=== PATIENT | male | born 1975 | race Caucasian/White ===

== ENCOUNTER 2017-03-22 08:27 | Day surgery (SDC) | payer BC ==
[2017-03-21 11:47] VITALS: BMI 25.5
[2017-03-22] MEDS ORDERED: ROPIVACAINE HCL 0.5% 30ML VIAL ONE (08:32)
[2017-03-22] MEDS ORDERED: MIDAZOLAM HCL 2 MG/2 ML SINGLE DOSE VIAL ONE ×2 (08:33)
--- NOTE | 2017-03-22 09:22 | HP ---
Satellite [facility] - Chief Complaint Chief Complaint: left shoulder pain - Past Medical History Allergies/Adverse Reactions: Allergies Allergy/AdvReac Type Severity Reaction Status Date / Time No Known Allergies Allergy Verified 03/22/17 09:00 - Current Medications Current Medications: Home Medications Medication Instructions Recorded Oxycodone HCl/Acetaminophen 1 - 2 tab PO Q6H #50 tab MDD 8 03/22/17 [Percocet 5-325 mg Tablet -] Satellite Physical Exam - Physical Examination Vital Signs: Vital Signs Period Temp Pulse Resp BP Sys/Connor Pulse Ox Last 24 Hr 65 16 119/74 100 General Appearance: Well Nourished, Well Developed, Alert & Oriented x3 ENT: Clear Lung: Normal air movement Heart: Regular rate & rhythm Extremities: Other (left shoulder- + ttp, decrr rom, + apprehension, + flores, + obriens, nvi MRI + labral tear) Neurological: Intact, Alert, Oriented Satellite Impression/Plan - Impression/Plan Impression: left shoulder labral tear Operative Procedure: left shoulder arthroscopy with labral repair Date to be Performed: 03/22/17
[2017-03-22] MEDS ORDERED: PROPOFOL 20 ML ONE ×2 (09:50)
[2017-03-22] MEDS ORDERED: ROCURONIUM BROMIDE 50 MG/5 ML VIAL ONE (09:51)
[2017-03-22] MEDS ORDERED: ceFAZolin SODIUM 1 GM VIAL ONE (10:08)
[2017-03-22] MEDS ORDERED: ceFAZolin SODIUM 1 GM VIAL IVPB ONE (10:09)
[2017-03-22] MEDS ORDERED: ePHEDrine SULFATE 50 MG/1 ML AMPULE ONE (10:28)
[2017-03-22] MEDS ORDERED: ONDANSETRON 4 MG/2 ML VIAL IVPUSH PRN (10:31)
[2017-03-22] MEDS ORDERED: oxyCODONE HCL 5 MG TABLET PO PRN (10:31)
[2017-03-22] MEDS ORDERED: ACETAMINOPHEN 1000 MG/100 ML VIAL (NON FORMULARY) IVPB PRN (10:31)
[2017-03-22] MEDS ORDERED: LACTATED RINGERS SOLUTION 1,000 ML IV SCH (10:45)
[2017-03-22] MEDS ORDERED: GLYCOPYRROLATE 0.2 MG/1 ML VIAL ONE (10:47)
[2017-03-22] MEDS ORDERED: NEOSTIGMINE METHYLSULFATE 0.5 MG/ML - 10 ML MDV ONE (10:47)
--- NOTE | 2017-03-22 10:56 | OP ---
Operative Note - Note: Operative Date: 03/22/17 ([facility]) Pre-Operative Diagnosis: left shoulder labral tear Operation: left shoulder arthroscopy with labral repair Implants: 4 arthrex pushlocks Post-Operative Diagnosis: Same as Pre-op Surgeon: Swapnil Singh Student Teaching Coordinator: Eduard Jones Anesthesiologist/PLASTIC DIE MAKER APPRENTICE: Ute Chandler Anesthesia: General, Local Specimens Removed: shavings Estimated Blood Loss (mls): 5 Operative Report Dictated: Yes
--- NOTE | 2017-03-22 12:31 | OP ---
DATE OF OPERATION: 03/22/2017 PREOPERATIVE DIAGNOSIS: Left labral tear. POSTOPERATIVE DIAGNOSIS: Left labral tear. PROCEDURE: Left labral repair arthroscopically. SURGICAL ATTENDING: Swapnil Singh MD SAP MOBILITY ARCHITECT: COMPA Johns ANESTHESIA: Regional and general. CLOSURE: Four Arthrex PushLock with FiberStick suture, 3-0 nylon for skin. ESTIMATED BLOOD LOSS: Negligible. COMPLICATIONS: None. CONDITION: To recovery room in stable condition. DESCRIPTION OF OPERATIVE PROCEDURE: Patient was taken to the operating room on March 22, 2017. Regional and general anesthesia was administered by the anesthesiologist. IV Kefzol was administered prophylactically prior to the case. Patient was placed in the beach-chair position with all prominences well padded. The left shoulder area was prepped and draped in the usual sterile fashion. First a diagnostic arthroscopy of the glenohumeral joint was performed. A posterior portal was made 2 fingerbreadths below the acromion, first with a 15 blade followed by a blunt trocar. Circumferential exam of the glenohumeral joint revealed the following: Intact glenoid and humeral head articular cartilage, intact biceps and biceps anchor, intact supraspinatus, infraspinatus, teres minor, and subscapularis tendon insertions. No loose bodies in the axillary pouch. The anterior labrum was torn and displaced medially and inferiorly. The interval between the labrum and the glenoid was easily developed. We made two extra portals, one in the superior triangle and one just above the subscapularis tendon. These were made by a spinal needle followed by a 15 blade blunt trocar. A shaver was placed in this interval between the glenoid and the labrum to remove any soft tissue and stimulate some bleeding bone. A rasp was used, as well. The labrum was clearly easily able to be anteriorized and more superiorly to restore the bumper effect on the anterior aspect of the labrum. Pulling superiorly on the labrum, sutures were passed using a 90-degree lasso from the direct anterior portal. Each one was fixated to a PushLock Lavelle which was drilled and deployed on the glenoid rim, and the sutures were then cut snug. Four anchors were deployed going from [address] up to 2 o'clock achieving excellent rigidity of the labrum and synagogue of the bumper anteriorly. The shoulder was irrigated. The fluid was drained. The portals were closed with 3-0 nylon, sterile pressure dressing, followed by shoulder immobilizer applied. Patient was awakened from anesthesia and transferred to the recovery room in stable condition. No complications. Estimated blood loss negligible. SWAPNIL SINGH M.D. [id number]
[2017-03-22 12:46] VITALS: BP 110/70
[2017-03-22 12:56] VITALS: PULSE 76
[2017-03-22 13:20] VITALS: TEMP 98.2
--- NOTE | 2017-03-23 13:01 | PATH ---
Surgical Pathology Report Patient Name: HUGH MOSER Med. Rec. #: [id number] /Age/Gender: 1975 (Age: 41) / M Account: [id number] Location: [facility] SUR[facility]ICAL Taken: 03/22/2017 Received: 03/22/2017 Reported: 03/23/2017 Physicians: Swapnil Singh M.D. Specimen(s) Received LEFT SHOULDER SHAVINGS Clinical History Left shoulder lentiginous syndrome, labral tear Final Diagnosis SOFT TISSUE, LEFT SHOULDER, ARTHROSCOPIC SHAVINGS: SYNOVIUM AND FIBROCARTILAGE WITH MYXOHYALINE DEGENERATION. SMALL FRAGMENTS OF UNREMARKABLE BONE. Electronically Signed Fran Marks M.D. Gross Description Received in formalin, labeled "left shoulder shavings" is a 1.0 x 1.0 x 0.3 cm aggregate of chowdhury-white soft tissue fragments. Submitted entirely in one cassette. AF/03/22/2017 final/03/22/2017
== END 2017-03-22 12:10 | disposition home or self-care (01) ==
LOC: JASU-SURG 08:27
PROVIDERS: ATTEND Orthopaedic Surgery
PROC: 0RQK4ZZ Repair Left Shoulder Joint, Percutaneous Endoscopic Approach (ICD-10-PCS; 2017-03-22)
PROC: 0MM24ZZ Reattachment of Left Shoulder Bursa and Ligament, Percutaneous Endoscopic Approach (ICD-10-PCS; principal; 2017-03-22 10:15)
DX: S43.492A Other sprain of left shoulder joint, initial encounter (principal); X58.XXXA Exposure to other specified factors, initial encounter; Y93.9 Activity, unspecified; Y92.9 Unspecified place or not applicable; Y99.9 Unspecified external cause status
CPT/HCPCS: 88304-TC; 94760

== ENCOUNTER 2019-01-06 08:08 | Inpatient (IN) | payer OTHER ==
[2019-01-06 08:35] VITALS: BMI 21.1
--- NOTE | 2019-01-06 09:37 | HP ---
COWS - Scale Resting Pulse: 0= [place] 80 or Below Sweatin= Chills/Flushing Restless Observation: 1= Difficult to Sit Still Pupil Size: 1= Pupils >than Normal Bone or Joint Aches: 2= Severe Diffuse Aches Runny Nose/ Eye Tearin= Runny Nose/Eyes GI Upset > 30mins: 2= Nausea/Diarrhea Tremor Observation: 1= Tremor [place], Not Seen Yawning Observation: 2= >3x During Session Anxiety or Irritability: 2=Irritable/Anxious Goose Flesh Skin: 0=Smooth Skin COWS Score: 14 CIWA Score Nausea/Vomitin Muscle Tremors: 2 Anxiety: 2 Agitation: 2 Paroxysmal Sweats: 1-Minimal Palms Moist Orientation: 0-Oriented Tacttile Disturbances: 1-Very Mild Itch/Numbness Auditory Disturbances: 1-Very Mild Visual Disturbances: 0-None Headache: 2-Mild CIWA-Ar Total Score: 13 - Admission Criteria OASAS Guidelines: Admission for Medically Managed Detox: Requires at least one of the followin. CIWA greater than 12 2. Seizures within the past 24 hours 3. Delirium tremens within the past 24 hours 4. Hallucinations within the past 24 hours 5. Acute intervention needed for co occurring medical disorder 6. Acute intervention needed for co occurring psychiatric disorder 7. Severe withdrawal that cannot be handled at a lower level of care (continued vomiting, continued diarrhea, abnormal vital signs) requiring intravenous medication and/or fluids 8. Admission ROS S - [facility] Chief Complaint: i need help to stop using heroin,cocaine and marijuana and alcohol Allergies/Adverse Reactions: Allergies Allergy/AdvReac Type Severity Reaction Status Date / Time No Known Allergies Allergy Verified 01/06/19 08:34 History of Present Illness: this 43 years old male with hroin,cocaine and marijuana seeking help for detox, withdrawal symptom had previous admission before last detox [facility] in 12/16 stated had previous rehab before in [facility] asthma on albuterol inhaler and nebulizer at home weight loss nicotine dependence 1 pack/day would like to have nicotine patch and gum anxiety no significant period of sobriety plan for methadone program after detox also alcohol dependence Exam Limitations: No Limitations - Ebola screening Have you traveled outside of the country in the last 21 days: No (N) Have you had contact with anyone from an Ebola affected area: No Do you have a fever: No - Review of Systems Constitutional: Chills, Loss of Appetite, Malaise, Night Sweats, Changes in sleep, Weakness, Unintentional Wgt. Loss EENT: reports: See HPI, Nose Congestion Respiratory: reports: No Symptoms reported, Other (asthma) Cardiac: reports: No Symptoms Reported GI: reports: Diarrhea, Nausea, Poor Appetite, Abdominal cramping : reports: No Symptoms Reported Integumentary: reports: Dryness Neuro: reports: Headache, Tremors Endocrine: reports: No Symptoms Reported Hematology: reports: No Symptoms Reported Psychiatric: reports: No Sypmtoms Reported, Judgement Intact, Mood/Affect Appropiate, Orientated x3, Anxious, other (insomnia) Patient History - Patient Medical History Hx Anemia: No Hx Asthma: Yes (on pumps albutrol inhaler and nebulizer) Hx Chronic Obstructive Pulmonary Disease (COPD): No Hx Cancer: No Hx Cardiac Disorders: No Hx Congestive Heart Failure: No Hx Hypertension: No Hx Hypercholesterolemia: No Hx Pacemaker: No HX Cerebrovascular Accident: No Hx Seizures: No Hx Dementia: No Hx Diabetes: No Hx Gastrointestinal Disorders: No Hx Liver Disease: No Hx Genitourinary Disorders: No Hx Sexually Transmitted Disorders: No Hx Renal Disease (ESRD): No Hx Thyroid Disease: No Hx Human Immunodeficiency Virus (HIV): No (last 11/16 negative) Hx Hepatitis C: No Hx Depression: Yes (hospitalized in [place] ) Hx Suicide Attempt: No Hx Bipolar Disorder: No Hx Schizophrenia: No Other Medical History: no suicidal,no homicidal - Patient Surgical History Past Surgical History: Yes Hx Neurologic Surgery: No Hx Cataract Extraction: No Hx Cardiac Surgery: No Hx Lung Surgery: No Hx Breast Surgery: No Hx Breast Biopsy: No Hx Abdominal Surgery: No Hx Appendectomy: No Hx Cholecystectomy: No Hx Genitourinary Surgery: No Hx Section: No Hx Orthopedic Surgery: Yes (left shoulder rotary cuff- 10months ago arthsocopic) Anesthesia Reaction: No - PPD History Previous Implant?: Yes Documented Results: Negative w/proof Implanted On Prior [facility] Admission?: Yes Date: 02/16/18 Results: NEGATIVE - Smoking Cessation Smoking history: Current every day smoker Have you smoked in the past 12 months: No Aproximately how many cigarettes per day: 20 Hx Chewing Tobacco Use: No Initiated information on smoking cessation: Yes 'Breaking Loose' booklet given: 01/06/19 - Substance & Tx. History Hx Alcohol Use: Yes Hx Substance Use: Yes Substance Use Type: Alcohol, Cocaine, Heroin, Marijuana Hx Substance Use Treatment: Yes ([facility] 12/16) - Substances abused Other Other (specify): PERCOCET Substance route: Oral Frequency: Daily Amount used: 4-5 PILLS Age of first use: 42 Date of last use: 12/07/18 Heroin Substance route: Inhalation Frequency: Daily Amount used: 5-6 BAGS Age of first use: 43 Date of last use: 01/06/19 Cocaine Substance route: Inhalation Frequency: 3-6 times per week Amount used: 1 GRAM Age of first use: 43 Date of last use: 01/05/19 Marijuana/Hashish Substance route: Smoking Frequency: Daily Amount used: 1 Age of first use: 16 Date of last use: 01/06/19 Alcohol Substance route: Oral Frequency: Daily Amount used: 2 pint of whiskey/9 of 12 ozs of beer Age of first use: 17 Date of last use: 01/05/19 Family Disease History - Family Disease History Family Disease History: Diabetes: Mother (living, in [place]), Other: Father (living , prostate cancer, in [place], hx etoh), Mother, Brother (one - here in [place]), Daughter (age 10 and 6 - healthy) Admission Physical Exam S - Vital Signs Vital Signs: Vital Signs - 24 hr 01/06/19 08:32 Temperature 98.7 F Pulse Rate 71 Respiratory 18 Rate Blood Pressure 111/64 - Physical General Appearance: Yes: Moderate Distress, Tremorous, Irritable, Sweating, Anxious HEENTM: Yes: Normal ENT Inspection, NESTOR, Pharynx Normal Respiratory: Yes: Lungs Clear, Normal Breath Sounds, No Respiratory Distress, Other (history of asthma) Neck: Yes: Within Normal Limits, Supple, Trachea in good position Breast: Yes: Within Normal Limits Cardiology: Yes: Within Normal Limits, Regular Rhythm, Regular Rate, S1, S2 Abdominal: Yes: Within Normal Limits, Normal Bowel Sounds, Non Tender, Soft Genitourinary: Yes: Within Normal Limits Back: Yes: Muscle Spasm Musculoskeletal: Yes: full range of Motion, Back pain, Muscle Pain Extremities: Yes: Normal Range of Motion, Tremors Neurological: Yes: piano refinisher II-XII NML intact, Fully Oriented, Alert, Motor Strength 5/5 Integumentary: Yes: Dry - Diagnostic (1) Alcohol dependence with withdrawal Current Visit: No Status: Acute Qualifiers: Complication of substance-induced condition: uncomplicated Qualified Code(s ): F10.230 - Alcohol dependence with withdrawal, uncomplicated (2) Cannabis dependence Current Visit: No Status: Acute (3) Cocaine dependence Current Visit: No Status: Acute Qualifiers: Substance use status: uncomplicated Qualified Code(s): F14.20 - Cocaine dependence, uncomplicated (4) Nicotine dependence Current Visit: No Status: Acute Qualifiers: Nicotine product type: cigarettes Substance use status: uncomplicated Qualified Code(s): F17.210 - Nicotine dependence, cigarettes, uncomplicated Comment: encouraged cessation, has patch (5) Opioid dependence with withdrawal Current Visit: No Status: Acute Comment: start suboxone 8mg bid (previous success on this dose) risks and limitations reviewed, safekeeping emphasized, suboxone agreement reviewed and signed; emphasized to avoid alcohol, marijuana and rationale for same safety plan: narcan bowel regimen: increase fruit,fiber, metamucil (6) Asthma Current Visit: No Status: Chronic Qualifiers: Asthma severity: mild Asthma persistence: intermittent Asthma complication type: uncomplicated Qualified Code(s): J45.20 - Mild intermittent asthma, uncomplicated (7) Weight loss Current Visit: Yes Status: Acute (8) Anxiety Current Visit: Yes Status: Acute (9) Anxious mood Current Visit: No Status: Acute (10) Insomnia Current Visit: Yes Status: Acute Cleared for Admission S - Detox or Rehab S Level of Care: Medically Managed Detox Regimen/Protocol: Methadone/Librium Breathalyzer - Breathalyzer Breathalyzer: 0 Urine Drug Screen - Test Device Lot number: [id number] Expiration date: 09/27/20 - Control Is test valid?: Yes - Results Drug screen NEGATIVE: No Urine drug screen results: THC-Marijuana, APOORVA-Cocaine, MOP-Opiates, MTD- Methadone, BZO-Benzodiazepines Inpatient Rehab Admission - Rehab Decision to Admit Inpatient rehab admission?: No
[2019-01-06] MEDS ORDERED: cloNIDine HCL 0.1 MG TABLET PO PRN (09:48)
[2019-01-06] MEDS ORDERED: METHADONE HCL 10 MG TABLET (FOR DETOX USE ONLY) PO ONE ×2 (09:52→23:00)
[2019-01-06] MEDS ORDERED: METHOCARBAMOL 500 MG TABLET PO PRN (09:55)
[2019-01-06] MEDS ORDERED: MAGNESIUM HYDROX 2400MG/30ML ORAL SUSPENSION 30 ML CUP PO PRN (09:55)
[2019-01-06] MEDS ORDERED: IBUPROFEN 400 MG TABLET (FP) PO PRN (09:55)
[2019-01-06] MEDS ORDERED: MAGNESIUM CITRATE 300 ML BOTTLE PO PRN (09:55)
[2019-01-06] MEDS ORDERED: BISMUTH SUBSALICYLATE 524 MG/30 ML UD PO PRN (09:55)
[2019-01-06] MEDS ORDERED: MAG HYDROX/AL HYDROX/SIMETH 30 ML UNIT-DOSE CUP PO PRN (09:55)
[2019-01-06] MEDS ORDERED: hydrOXYzine PAMOATE 25 MG CAPSULE (FP) PO PRN (09:55)
[2019-01-06] MEDS ORDERED: NICOTINE POLACRILEX 2 MG GUM BUC PRN (09:55)
[2019-01-06] MEDS ORDERED: chlordiazePOXIDE HCL 25 MG CAPSULE PO PRN (09:55)
[2019-01-06] MEDS ORDERED: MENTHOL/PHENOL 1 EACH UD MM PRN (09:55)
[2019-01-06] MEDS ORDERED: ACETAMINOPHEN 325 MG TABLET (FP) PO PRN ×2 (09:55)
[2019-01-06] MEDS ORDERED: PRENATAL VITAMINS W/ FOLIC ACID TABLET (FP) PO SCH (10:00)
[2019-01-06] MEDS ORDERED: NICOTINE 21 MG/24 HOURS TOPICAL PATCH TD SCH (10:00)
[2019-01-06] MEDS ORDERED: ALBUTEROL SO4 2.5/IPRATROPIUM 0.5 INH SOL 3 ML VIAL.NEB. NEB PRN (10:01)
[2019-01-06] MEDS: chlordiazePOXIDE HCL 25 MG CAPSULE PO SCH ×3 (11:35→22:18)
[2019-01-06] MEDS: cloNIDine HCL 0.1 MG TABLET PO SCH ×2 (13:46→22:18)
[2019-01-06] MEDS: GABAPENTIN 300 MG CAPSULE (FP) PO SCH ×2 (13:47→22:18)
[2019-01-06] MEDS ORDERED: guaiFENesin/D-METHORPHAN HB 10 ML UNIT-DOSE CUPS PO PRN (18:05)
[2019-01-06 21:49] VITALS: BP 129/82; PULSE 64; TEMP 98.3
[2019-01-06] MEDS ORDERED: THIAMINE HCL 100 MG TABLET (FP) PO SCH (22:00)
[2019-01-06] MEDS ORDERED: MELATONIN 5 MG TABLETS PO PRN (22:00)
[2019-01-06] MEDS ORDERED: traZODone HCL 50 MG TABLET (FP) PO SCH (22:00)
[2019-01-07 03:27] LABS: EPI CELLS 8.1 /HPF (0-5/HPF); HYALINE CASTS 11 /lpf (0-8); PH,URINE 5.5 (5.0-8.0); URINE APPEARANCE TURBID; URINE BACTERIA 71.5 /hpf (NEGATIVE); URINE BILIRUBIN NEGATIVE (NEGATIVE); URINE COLOR DK YELLOW; URINE GLUCOSE (UA) NEGATIVE (NEGATIVE); URINE KETONE TRACE (NEGATIVE); URINE LEUK ESTERASE NEGATIVE (NEGATIVE); URINE NITRITE NEGATIVE (NEGATIVE); URINE PROTEIN 1+ (NEGATIVE); URINE WBC 3 /hpf (0-5)
[2019-01-07 03:54] LABS: URINE CRYSTALS 1+ /hpf
--- NOTE | 2019-01-07 04:32 | PN ---
S Progress Note Note: MD'S NOTE: INFORMED THAT THE PT. WANTS TO SIGN OUT AMA FOR PERSONAL PROBLEMS SO, THE PT. SIGNED OUT AMA AND ABOUT TO LEAVE THE FACILITY SOON. RECOMMENDED: TO F/U WITH PMD AND OUT PT. PROGRAMS. PROVIDER: ARIES LUBIN MD
[2019-01-07] MEDS ORDERED: METHADONE HCL 10 MG TABLET (FOR DETOX USE ONLY) PO ONE (10:00)
[2019-01-07] MEDS ORDERED: chlordiazePOXIDE HCL 25 MG CAPSULE PO SCH (11:00)
[2019-01-08] MEDS ORDERED: METHADONE HCL 10 MG TABLET (FOR DETOX USE ONLY) PO ONE (10:00)
[2019-01-08] MEDS ORDERED: chlordiazePOXIDE HCL 10 MG CAPSULE PO PRN (11:00)
[2019-01-08] MEDS ORDERED: chlordiazePOXIDE HCL 10 MG CAPSULE PO SCH (11:00)
[2019-01-09] MEDS ORDERED: METHADONE HCL 10 MG TABLET (FOR DETOX USE ONLY) PO ONE (10:00)
[2019-01-09] MEDS ORDERED: METHADONE HCL 5 MG TABLET (FOR DETOX USE ONLY) PO ONE (10:00)
[2019-01-09] MEDS ORDERED: chlordiazePOXIDE HCL 10 MG CAPSULE PO SCH (11:00)
[2019-01-10] MEDS ORDERED: METHADONE HCL 5 MG TABLET (FOR DETOX USE ONLY) PO ONE (06:00)
[2019-01-10] MEDS ORDERED: METHADONE HCL 10 MG TABLET (FOR DETOX USE ONLY) PO ONE (10:00)
[2019-01-11] MEDS ORDERED: METHADONE HCL 5 MG TABLET (FOR DETOX USE ONLY) PO ONE (06:00)
== END 2019-01-07 04:34 | disposition left against medical advice (07) | DRG 770 ==
LOC: YASAS 08:08 → Y3N 09:50
PROVIDERS: ADMIT Surgery; ATTEND Surgery
PROC: HZ2ZZZZ Detoxification Services for Substance Abuse Treatment (ICD-10-PCS; principal; 2019-01-06)
DX: F10.230 Alcohol dependence with withdrawal, uncomplicated (principal); F11.23 Opioid dependence with withdrawal; F14.20 Cocaine dependence, uncomplicated; F12.20 Cannabis dependence, uncomplicated; F17.210 Nicotine dependence, cigarettes, uncomplicated; F41.9 Anxiety disorder, unspecified; G47.00 Insomnia, unspecified; J45.20 Mild intermittent asthma, uncomplicated; R63.4 Abnormal weight loss; Z68.21 Body mass index [BMI] 21.0-21.9, adult
CPT/HCPCS: 81003; J0735

== ENCOUNTER 2019-01-07 19:56 | Inpatient (IN) | payer OTHER ==
[2019-01-07 23:32] VITALS: BMI 23.1
--- NOTE | 2019-01-08 00:35 | HP ---
COWS - Scale Resting Pulse: 1= [place] 81-100 Sweatin=Flushed/Facial Moisture Restless Observation: 1= Difficult to Sit Still Pupil Size: 1= Pupils >than Normal Bone or Joint Aches: 2= Severe Diffuse Aches Runny Nose/ Eye Tearin= Runny Nose/Eyes GI Upset > 30mins: 2= Nausea/Diarrhea Tremor Observation: 2= Slight Tremor Visible Yawning Observation: 0= None Anxiety or Irritability: 2=Irritable/Anxious Goose Flesh Skin: 0=Smooth Skin COWS Score: 15 CIWA Score Nausea/Vomitin Muscle Tremors: 4-Moderate,w/Arms Extend Anxiety: 2 Agitation: 2 Paroxysmal Sweats: 3 Orientation: 0-Oriented Tacttile Disturbances: 2-Mild Itch/Numbness/Burn Auditory Disturbances: 2-Mild Harshness/Frighten Visual Disturbances: 2-Mild Sensitivity Headache: 1-Very Mild CIWA-Ar Total Score: 20 - Admission Criteria OASAS Guidelines: Admission for Medically Managed Detox: Requires at least one of the followin. CIWA greater than 12 2. Seizures within the past 24 hours 3. Delirium tremens within the past 24 hours 4. Hallucinations within the past 24 hours 5. Acute intervention needed for co occurring medical disorder 6. Acute intervention needed for co occurring psychiatric disorder 7. Severe withdrawal that cannot be handled at a lower level of care (continued vomiting, continued diarrhea, abnormal vital signs) requiring intravenous medication and/or fluids 8. Admission ROS S - HPI Chief Complaint: DEPENDENT ON ETOH, HEROIN, PERCOCET, COCAINE AND MARIJUANA Allergies/Adverse Reactions: Allergies Allergy/AdvReac Type Severity Reaction Status Date / Time No Known Allergies Allergy Verified 01/07/19 23:11 History of Present Illness: THE PT. IS REQUESTING ADMISSION TO THE DETOX UNIT AND CAME FOR MEDICAL CLEARANCE AND H AND PE Exam Limitations: No Limitations - Ebola screening Have you traveled outside of the country in the last 21 days: No (N) Have you had contact with anyone from an Ebola affected area: No Do you have a fever: No - Review of Systems Constitutional: See HPI, Loss of Appetite, Malaise, Weakness, Unexplained wgt Loss EENT: reports: See HPI Respiratory: reports: See HPI, Wheezing Cardiac: reports: See HPI GI: reports: See HPI, Nausea, Poor Appetite, Abdominal cramping : reports: See HPI Musculoskeletal: reports: See HPI, Muscle Pain, Muscle Weakness Integumentary: reports: See HPI Neuro: reports: See HPI, Headache Endocrine: reports: See HPI Hematology: reports: See HPI Psychiatric: reports: Judgement Intact, Orientated x3, Anxious, Depressed Patient History - Patient Medical History Hx Anemia: No Hx Asthma: Yes (on pumps albutrol inhaler and nebulizer) Hx Chronic Obstructive Pulmonary Disease (COPD): No Hx Cancer: No Hx Cardiac Disorders: No Hx Congestive Heart Failure: No Hx Hypertension: No Hx Hypercholesterolemia: No Hx Pacemaker: No HX Cerebrovascular Accident: No Hx Seizures: No Hx Dementia: No Hx Diabetes: No Hx Gastrointestinal Disorders: No Hx Liver Disease: No Hx Genitourinary Disorders: No Hx Sexually Transmitted Disorders: No Hx Renal Disease (ESRD): No Hx Thyroid Disease: No Hx Human Immunodeficiency Virus (HIV): No (last 11/16 negative) Hx Hepatitis C: No Hx Depression: Yes (AND ANXIETY - hospitalized in [place] ) Hx Suicide Attempt: No Hx Bipolar Disorder: No Hx Schizophrenia: No - Patient Surgical History Past Surgical History: Yes Hx Neurologic Surgery: No Hx Cataract Extraction: No Hx Cardiac Surgery: No Hx Lung Surgery: No Hx Breast Surgery: No Hx Breast Biopsy: No Hx Abdominal Surgery: No Hx Appendectomy: No Hx Cholecystectomy: No Hx Genitourinary Surgery: No Hx Section: No Hx Orthopedic Surgery: Yes (left shoulder rotary cuff- 10months ago arthsocopic) Anesthesia Reaction: No - PPD History Date: 02/16/18 Results: NEGATIVE - Smoking Cessation Smoking history: Current every day smoker Have you smoked in the past 12 months: No Aproximately how many cigarettes per day: 20 Hx Chewing Tobacco Use: No Initiated information on smoking cessation: Yes 'Breaking Loose' booklet given: 01/08/19 - Substance & Tx. History Hx Alcohol Use: Yes Hx Substance Use: Yes Substance Use Type: Alcohol, Cocaine, Heroin, Marijuana, Opiates - Substances abused Other Other (specify): PERCOCET Substance route: Oral Frequency: Daily Amount used: 4-5 PILLS Age of first use: 42 Date of last use: 12/07/18 Heroin Substance route: Inhalation Frequency: Daily Amount used: 50-60B/D Age of first use: 43 Date of last use: 01/06/19 Cocaine Substance route: Inhalation Frequency: 3-6 times per week Amount used: 1 GRAM Age of first use: 43 Date of last use: 01/05/19 Marijuana/Hashish Substance route: Smoking Frequency: Daily Amount used: 1/8TH OZ Age of first use: 16 Date of last use: 01/05/19 Alcohol Substance route: Oral Frequency: Daily Amount used: 2 pint of whiskey/9 of 12 ozs of beer Age of first use: 17 Date of last use: 01/05/19 Family Disease History - Family Disease History Family Disease History: Diabetes: Mother (living, in [place]), Other: Father (living , prostate cancer, in [place], hx etoh), Mother, Brother (one - here in [place]), Daughter (age 10 and 6 - healthy) Admission Physical Exam S - Vital Signs Vital Signs: Vital Signs - 24 hr 01/07/19 23:20 Temperature 97.0 F L Pulse Rate 90 Respiratory 19 Rate Blood Pressure 110/66 - Physical General Appearance: Yes: No Apparent Distress, Appropriately Dressed, Thin, Tremorous, Sweating, Anxious HEENTM: Yes: Hearing grossly Normal, Normocephalic, Normal Voice, NESTOR, Pharynx Normal Respiratory: Yes: Chest Non-Tender, No Respiratory Distress, No Accessory Muscle Use, Rhonchi, Wheezing Neck: Yes: No masses,lesions,Nodules, Supple, Trachea in good position Breast: Yes: Breast Exam Deferred, Axillae without masses Cardiology: Yes: Regular Rhythm, S1, S2, Tachycardia Abdominal: Yes: Normal Bowel Sounds, Non Tender, Flat, Soft Back: Yes: Normal Inspection Musculoskeletal: Yes: full range of Motion, Gait Steady, Pelvis Stable, Muscle Pain, Muscle weakness Extremities: Yes: Normal Capillary Refill, Normal Range of Motion, Non-Tender, Tremors 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 NML intact, Fully Oriented, Alert, Motor Strength 5/5, Normal Response, Depressed Affect Integumentary: Yes: Normal Color, Warm, Moist Lymphatic: Yes: Within Normal Limits - Diagnostic (1) Alcohol dependence with withdrawal Current Visit: No Status: Chronic Qualifiers: Complication of substance-induced condition: uncomplicated Qualified Code(s ): F10.230 - Alcohol dependence with withdrawal, uncomplicated (2) Anxiety Current Visit: No Status: Chronic (3) Cannabis dependence Current Visit: No Status: Chronic (4) Cocaine dependence Current Visit: No Status: Chronic Qualifiers: Substance use status: uncomplicated Qualified Code(s): F14.20 - Cocaine dependence, uncomplicated (5) Nicotine dependence Current Visit: No Status: Chronic Qualifiers: Nicotine product type: cigarettes Substance use status: uncomplicated Qualified Code(s): F17.210 - Nicotine dependence, cigarettes, uncomplicated Comment: encouraged cessation, has patch (6) Opioid dependence Current Visit: No Status: Chronic Qualifiers: Substance use status: uncomplicated Qualified Code(s): F11.20 - Opioid dependence, uncomplicated (7) Weight loss Current Visit: No Status: Acute (8) Asthma Current Visit: No Status: Chronic Qualifiers: Asthma severity: mild Asthma persistence: intermittent Asthma complication type: uncomplicated Qualified Code(s): J45.20 - Mild intermittent asthma, uncomplicated (9) Heroin dependence Current Visit: Yes Status: Chronic Cleared for Admission [facility] - Detox or Rehab [facility] Level of Care: Medically Supervised Detox Regimen/Protocol: Methadone/Librium Breathalyzer - Breathalyzer Breathalyzer: 0 Urine Drug Screen - Test Device Lot number: [id number] Expiration date: 09/27/20 - Control Is test valid?: Yes - Results Drug screen NEGATIVE: No Urine drug screen results: THC-Marijuana, APOORVA-Cocaine, FEN-Fentanyl, MOP-Opiates , MTD-Methadone, BZO-Benzodiazepines Inpatient Rehab Admission - Rehab Decision to Admit Inpatient rehab admission?: No
[2019-01-08] MEDS ORDERED: diphenhydrAMINE HCL 50 MG CAPSULE PO PRN (00:44)
[2019-01-08] MEDS ORDERED: MENTHOL/PHENOL 1 EACH UD MM PRN (00:45)
[2019-01-08] MEDS ORDERED: BISMUTH SUBSALICYLATE 524 MG/30 ML UD PO PRN (00:45)
[2019-01-08] MEDS ORDERED: MAGNESIUM HYDROX 2400MG/30ML ORAL SUSPENSION 30 ML CUP PO PRN (00:45)
[2019-01-08] MEDS ORDERED: ACETAMINOPHEN 325 MG TABLET (FP) PO PRN ×2 (00:45)
[2019-01-08] MEDS ORDERED: METHOCARBAMOL 500 MG TABLET PO PRN (00:45)
[2019-01-08] MEDS ORDERED: MAG HYDROX/AL HYDROX/SIMETH 30 ML UNIT-DOSE CUP PO PRN (00:45)
[2019-01-08] MEDS ORDERED: MELATONIN 5 MG TABLETS PO PRN (00:45)
[2019-01-08] MEDS ORDERED: NICOTINE POLACRILEX 4 MG GUM BUC PRN (00:45)
[2019-01-08] MEDS ORDERED: IBUPROFEN 400 MG TABLET (FP) PO PRN (00:45)
[2019-01-08] MEDS ORDERED: hydrOXYzine PAMOATE 25 MG CAPSULE (FP) PO PRN (00:45)
[2019-01-08] MEDS ORDERED: MAGNESIUM CITRATE 300 ML BOTTLE PO PRN (00:45)
[2019-01-08] MEDS ORDERED: chlordiazePOXIDE HCL 25 MG CAPSULE PO PRN (00:45)
[2019-01-08] MEDS ORDERED: METHADONE HCL 10 MG TABLET (FOR DETOX USE ONLY) PO ONE ×2 (00:47→23:00)
[2019-01-08] MEDS ORDERED: cloNIDine HCL 0.1 MG TABLET PO PRN (00:47)
[2019-01-08] MEDS: hydrOXYzine PAMOATE 50 MG CAPSULE (FP) PO SCH ×2 (03:23→10:33)
[2019-01-08] MEDS ORDERED: diphenhydrAMINE HCL 25 MG CAPSULE (FP) PO PRN (03:37)
[2019-01-08] MEDS ORDERED: GABAPENTIN 300 MG CAPSULE (FP) PO SCH (06:00)
[2019-01-08] MEDS ORDERED: cloNIDine HCL 0.1 MG TABLET PO SCH (06:00)
[2019-01-08] MEDS: chlordiazePOXIDE HCL 25 MG CAPSULE PO SCH ×2 (06:15→10:32)
[2019-01-08] MEDS ORDERED: ALBUTEROL SO4 8 GM HFA INHALER IH PRN (09:23)
--- NOTE | 2019-01-08 09:30 | PN ---
S CIWA - CIWA Score Nausea/Vomitin Muscle Tremors: 2 Anxiety: 2 Agitation: 2 Paroxysmal Sweats: 1-Minimal Palms Moist Orientation: 0-Oriented Tacttile Disturbances: 1-Very Mild Itch/Numbness Auditory Disturbances: 1-Very Mild Visual Disturbances: 0-None Headache: 2-Mild CIWA-Ar Total Score: 13 [facility] COWS - Scale Resting Pulse: 0= [place] 80 or Below Sweatin= Chills/Flushing Restless Observation: 1= Difficult to Sit Still Pupil Size: 1= Pupils >than Normal Bone or Joint Aches: 2= Severe Diffuse Aches Runny Nose/ Eye Tearin= Nasal Congestion GI Upset > 30mins: 2= Nausea/Diarrhea Tremor Observation of Outstretched Hands: 2= Slight Tremor Visible Yawning Observation: 1= 1-2x During Session Anxiety or Irritability: 2=Irritable/Anxious Goose Flesh Skin: 0=Smooth Skin COWS Score: 13 S Progress Note (SOAP) Subjective: alert,irritable,anxious,interrupted sleep,tremor,pain in the body and back Objective: 01/08/19 09:28 Vital Signs Temperature 97.9 F 01/08/19 06:00 Pulse Rate 76 01/08/19 06:00 Respiratory Rate 18 01/08/19 06:00 Blood Pressure 128/76 01/08/19 02:35 O2 Sat by Pulse Oximetry (%) 01/08/19 09:29 labs pending Assessment: 01/08/19 09:29 withdrawal symptom Plan: continue detox
[2019-01-08 09:42] VITALS: BP 94/56; PULSE 90; TEMP 97
[2019-01-08] MEDS ORDERED: PRENATAL VITAMINS W/ FOLIC ACID TABLET (FP) PO SCH (10:00)
[2019-01-08] MEDS ORDERED: PSYLLIUM 5.85 GM PACKET PO SCH (10:00)
[2019-01-08] MEDS ORDERED: NICOTINE 21 MG/24 HOURS TOPICAL PATCH TD SCH (10:00)
[2019-01-08] MEDS ORDERED: PNEUMOCOCCAL 23 VACCINE 0.5 ML VIAL IM ONE (12:00)
[2019-01-08] MEDS ORDERED: PNEUMOC 13-VAL CONJ-DIP CRM/PF 0.5 ML DISP.SYRIN IM ONE (12:00)
--- NOTE | 2019-01-08 14:02 | PN ---
[facility] Progress Note Note: as per nursing staff pt was being inpatient and refused to wait for medication to be dispensed. Pt refused to speak to any personal and walked off the unit. Pt was then escorted by security so pt can get his belonging. pt was ROBERTA.
--- NOTE | 2019-01-08 14:03 | DS ---
[facility] Detox Discharge Summary Admission Date: 01/08/19 - History Present History: Cannabis Dependence, Opioid Dependence, Sedative Dependence - Physical Exam Results Vital Signs: Vital Signs Temperature 97.0 F L 01/08/19 09:41 Pulse Rate 90 01/08/19 09:41 Respiratory Rate 18 01/08/19 09:41 Blood Pressure 94/56 L 01/08/19 09:41 O2 Sat by Pulse Oximetry (%) - Medication Discharge Medications: Ambulatory Orders Psyllium Husk (with Sugar) [Metamucil Powder] 1 cap PO ASDIR #1 jar MDD 2 Zolpidem Tartrate [Ambien] 10 mg PO HS 09/12/18 Albuterol Sulfate Inhaler - [Ventolin Hfa Inhaler -] 2 inh PO QID PRN #1 inhaler 10/03/18 Multivitamin [Multiple Vitamins] 1 each PO DAILY #30 tablet 10/10/18 Clonidine HCl 0.1 mg PO TID 01/06/19 Diphenhydramine [Benadryl -] 50 mg PO DAILY PRN 01/06/19 Gabapentin 300 mg PO TID 01/06/19 Melatonin 5 mg PO HS 01/06/19 traZODone HCL [Trazodone HCl] 100 mg PO HS 01/06/19 hydrOXYzine PAMOATE [Vistaril -] 50 mg PO Q8H 01/07/19 - AMA Did Patient Leave Against Medical Advice: Yes (pt walked off the unit. )
[2019-01-08] MEDS ORDERED: MELATONIN 5 MG TABLETS PO SCH (22:00)
[2019-01-08] MEDS ORDERED: traZODone HCL 50 MG TABLET (FP) PO SCH (22:00)
[2019-01-08] MEDS ORDERED: THIAMINE HCL 100 MG TABLET (FP) PO SCH (22:00)
[2019-01-09] MEDS ORDERED: chlordiazePOXIDE HCL 25 MG CAPSULE PO SCH (05:00)
[2019-01-09] MEDS ORDERED: METHADONE HCL 10 MG TABLET (FOR DETOX USE ONLY) PO ONE ×2 (10:00)
[2019-01-10] MEDS ORDERED: chlordiazePOXIDE HCL 10 MG CAPSULE PO SCH (05:00)
[2019-01-10] MEDS ORDERED: chlordiazePOXIDE HCL 10 MG CAPSULE PO PRN (05:00)
[2019-01-10] MEDS ORDERED: METHADONE HCL 10 MG TABLET (FOR DETOX USE ONLY) PO ONE (10:00)
[2019-01-11] MEDS ORDERED: chlordiazePOXIDE HCL 10 MG CAPSULE PO SCH (05:00)
[2019-01-11] MEDS ORDERED: METHADONE HCL 10 MG TABLET (FOR DETOX USE ONLY) PO ONE (10:00)
[2019-01-12] MEDS ORDERED: METHADONE HCL 5 MG TABLET (FOR DETOX USE ONLY) PO ONE (06:00)
== END 2019-01-08 11:46 | disposition left against medical advice (07) | DRG 770 ==
LOC: YASAS 19:56 → Y6N 01-08 00:58
PROVIDERS: ADMIT Surgery; ATTEND Surgery
PROC: HZ2ZZZZ Detoxification Services for Substance Abuse Treatment (ICD-10-PCS; principal; 2019-01-08)
DX: F10.230 Alcohol dependence with withdrawal, uncomplicated (principal); F11.20 Opioid dependence, uncomplicated; F14.20 Cocaine dependence, uncomplicated; F12.20 Cannabis dependence, uncomplicated; F17.210 Nicotine dependence, cigarettes, uncomplicated; F41.9 Anxiety disorder, unspecified; J45.20 Mild intermittent asthma, uncomplicated; R63.4 Abnormal weight loss; Z68.23 Body mass index [BMI] 23.0-23.9, adult
CPT/HCPCS: J0735

== ENCOUNTER 2019-01-12 04:03 | Emergency (ER) | payer OTHER ==
[2019-01-12 04:26] VITALS: TEMP 98.6; BMI 28.3
--- NOTE | 2019-01-12 05:05 | PDOC ---
Attending Attestation - Resident Resident Name: Rafael Reeves - ED Attending Attestation I have performed the following: I have examined & evaluated the patient, The case was reviewed & discussed with the resident, I agree w/resident's findings & plan - HPI HPI: 01/12/19 19:35 Pt comes with alcohol abouse, heroin abuse, cocaine abuse. He was in [facility] on 01/08 and 01/06 and both times he was about to be given a bed and admitted for the program, when he signed AMA. Now retunrs begging for detox. Sleeping comfortably; no other complaints. - Physicial Exam PE: 01/12/19 19:36 Agree with resident exam. - Medical Decision Making 01/12/19 19:36 I called [facility] and spoke to the ASSISTANT GOLF COACH/PA taking care of the floors, and she asks that we send pt this AM at 8am, as the program is full currently but they are expecting morning discharges, and they are expecting rooms to open up.
--- NOTE | 2019-01-12 05:10 | PDOC ---
History of Present Illness - General Chief Complaint: Alcohol intoxication Stated Complaint: PAIN,FEELING ANXIOUS Time Seen by Provider: 01/12/19 04:59 History Source: Patient Exam Limitations: No Limitations - History of Present Illness Initial Comments: 43 yo M w a hx of polysubstance abuse, depression and asthma presents to the ER lethargic BIBEMS stating he messed up and took heroin and cocaine earlier today. The patient is crying at bedside saying he wants to turn his life around but keeps messing up. He took cocaine this morning and heroin this evening. The patient states he has been experiencing on and off chest pains. The patient states he has diffuse itchiness on his chest and can't stop scratching himself after he used heroin. He denies any shortness of breath or difficulty breathing. PSH: Left shoulder hx Social Hx: Polysubstance abuse. Recently used cocaine and heroin Allergies: NKA, NKDA Past History - Past Medical History Allergies/Adverse Reactions: Allergies Allergy/AdvReac Type Severity Reaction Status Date / Time No Known Allergies Allergy Verified 01/12/19 04:24 Home Medications: Ambulatory Orders Psyllium Husk (with Sugar) [Metamucil Powder] 1 cap PO ASDIR #1 jar MDD 2 Zolpidem Tartrate [Ambien] 10 mg PO HS 09/12/18 Albuterol Sulfate Inhaler - [Ventolin Hfa Inhaler -] 2 inh PO QID PRN #1 inhaler 10/03/18 Multivitamin [Multiple Vitamins] 1 each PO DAILY #30 tablet 10/10/18 Clonidine HCl 0.1 mg PO TID 01/06/19 Diphenhydramine [Benadryl -] 50 mg PO DAILY PRN 01/06/19 Gabapentin 300 mg PO TID 01/06/19 Melatonin 5 mg PO HS 01/06/19 traZODone HCL [Trazodone HCl] 100 mg PO HS 01/06/19 hydrOXYzine PAMOATE [Vistaril -] 50 mg PO Q8H 01/07/19 Anemia: No Asthma: Yes (on pumps albutrol inhaler and nebulizer) Cancer: No Cardiac Disorders: No CVA: No COPD: No CHF: No Dementia: No Diabetes: No GI Disorders: No Disorders: No HTN: No Hypercholesterolemia: No Kidney Stones: No Liver Disease: No Seizures: No Thyroid Disease: No - Surgical History Abdominal Surgery: No Appendectomy: No Cardiac Surgery: No Cholecystectomy: No Lung Surgery: No Neurologic Surgery: No Orthopedic Surgery: Yes (left shoulder rotary cuff- 10months ago arthsocopic) - Reproductive History Testicular Surgery: No - Suicide/Smoking/Psychosocial Hx Smoking History: Unknown if ever smoked Have you smoked in the past 12 months: No Number of Cigarettes Smoked Daily: 20 'Breaking Loose' booklet given: 01/08/19 Hx Alcohol Use: Yes Drug/Substance Use Hx: No Substance Use Type: Alcohol, Cocaine, Heroin, Marijuana, Opiates Hx Substance Use Treatment: Yes ([facility] 12/16) Review of Systems - Review of Systems Able to Perform ROS?: No (intoxicated) *Physical Exam - Vital Signs Last Vital Signs Temp Pulse Resp BP Pulse Ox 98.6 F 88 16 149/74 97 01/12/19 04:24 01/12/19 04:24 01/12/19 04:24 01/12/19 04:24 01/12/19 04:24 - Physical Exam Comments: CONSTITUTIONAL: Lethargic. somnolent. no apparent distress HEAD: Normocephalic; atraumatic EYES: PERRL; EOM intact ENMT: External appears normal; normal oropharynx NECK: Supple; non-tender; no cervical lymphadenopathy CARD: Normal S1, S2; no murmurs, rubs, or gallops RESP: CTAB. No wheezes, rhonchi, or rales ABD: diffusely red, urticaria. Soft, non-distended; non-tender; no palpable organomegaly, no palpable hernias EXT: Track salvador over both arms. Normal ROM in all four extremities; non-tender to palpation; distal pulses intact SKIN: Warm, dry. Pruritic rash over abdomen. NEURO: No focal neurological deficiencies. ED Treatment Course - LABORATORY CBC & Chemistry Diagram: 01/12/19 05:16 01/12/19 05:16 Medical Decision Making - Medical Decision Making 43 yo M w a hx of polysubstance abuse, depression and asthma presents to the ER lethargic BIBEMS stating he messed up and took heroin and cocaine earlier today. The patient is crying at bedside saying he wants to turn his life around but keeps messing up. He took cocaine this morning and heroin this evening. The patient states he has been experiencing on and off chest pains. The patient states he has diffuse itchiness on his chest and can't stop scratching himself after he used heroin. He denies any shortness of breath or difficulty breathing. VS: Vital Signs Temp Pulse Resp BP Pulse Ox 98.6 F 88 16 149/74 97 01/12/19 04:24 01/12/19 04:24 01/12/19 04:24 01/12/19 04:24 01/12/19 04:24 MDM: Patient endorses polysubstance use and seeks detox Plan: Will obtain labs, urine, tox, EKG, hydrate, benadryl and attempt to transfer over to [facility] for detox. Spoke with [facility] - They said to send him over at 8 Am and they will take care of him. - Will sign patient out to the morning team for transfer to [facility] at 8 am *DC/Admit/Observation/Transfer Diagnosis at time of Disposition: Polysubstance abuse - Discharge Dispostion Disposition: HOME Condition at time of disposition: Stable Decision to Admit order: No - Referrals Referrals: Darci Hernandez MD [Primary Care Provider] - - Patient Instructions Printed Discharge Instructions: Cocaine Use Disorder, DI for Alcohol Abuse, Getting Treatment for Drug Addiction Additional Instructions: Please stop using illegal drugs. Do your best to get clean at [facility]. Come back to the ER with any new or worsening concerns. - Post Discharge Activity
[2019-01-12] MEDS ORDERED: SODIUM CHLORIDE 0.9% 500 ML INFUS.BAG IV ONE (05:11)
[2019-01-12 05:47] LABS: BASO % 0.5 % (0-2.0); EOS % 3.9 % (0-4.5); HEMATOCRIT 38.2 % (35.4-49); HEMOGLOBIN 13.1 GM/dL (11.7-16.9); LYMPH % 22.7 % (8-40); MCH 32.7 pg (25.7-33.7); MCHC 34.2 g/dl (32.0-35.9); MEAN CELL VOLUME 95.6 fl (80-96); MEAN PLT VOLUME 7.3 fl (7.5-11.1); MONO % 6.2 % (3.8-10.2); NEUT % 66.7 % (42.8-82.8); PLATELET COUNT 251 K/MM3 (134-434); RDW 13.8 % (11.9-15.9); WHITE BLOOD COUNT 7.4 K/mm3 (4.0-10.0)
[2019-01-12 05:57] LABS: URINE APPEARANCE CLEAR; URINE BILIRUBIN NEGATIVE (NEGATIVE); URINE COLOR YELLOW; URINE GLUCOSE (UA) NEGATIVE (NEGATIVE); URINE KETONE NEGATIVE (NEGATIVE); URINE LEUK ESTERASE NEGATIVE (NEGATIVE); URINE NITRITE NEGATIVE (NEGATIVE); URINE PROTEIN NEGATIVE (NEGATIVE)
[2019-01-12 05:58] LABS: INR 1.06 (0.83-1.09); PROTHROMBIN TIME (PATIENT) 12.5 SEC (9.7-13.0)
[2019-01-12 06:14] LABS: ALBUMIN 3.3 g/dl (3.4-5.0); BILIRUBIN,TOTAL 0.2 mg/dL (0.2-1); BLOOD UREA NITROGEN 13.3 mg/dL (7-18); CALCIUM 8.4 mg/dL (8.5-10.1); CREATININE 0.8 mg/dL (0.55-1.3); POTASSIUM 4.2 mmol/L (3.5-5.1); TOT PROT 6.4 g/dl (6.4-8.2)
[2019-01-12 07:34] LABS: URINE AMPHETAMINES NEGATIVE ng/ml (CUTOFF=500); URINE BARBITURATES NEGATIVE ng/ml (CUTOFF=200)
[2019-01-12 07:54] LABS: URINE BENZODIAZEPINES POSITIVE ng/ml (CUTOFF=200)
[2019-01-12 07:55] LABS: COCAINE, UR POSITIVE ng/ml (CUTOFF=300); OPIATES, URI POSITIVE ng/ml (CUTOFF=300); PHENCYCLIDINE,URINE POSITIVE ng/ml (CUTOFF=25)
[2019-01-12 07:56] LABS: METHADONE, UR POSITIVE ng/ml (CUTOFF=300)
--- NOTE | 2019-01-12 08:23 | PDOC ---
*Physical Exam - Vital Signs Last Vital Signs Temp Pulse Resp BP Pulse Ox 98.6 F 88 16 149/74 97 01/12/19 04:24 01/12/19 04:24 01/12/19 04:24 01/12/19 04:24 01/12/19 04:24 ED Treatment Course - LABORATORY CBC & Chemistry Diagram: 01/12/19 05:16 01/12/19 05:16 - ADDITIONAL ORDERS Additional order review: Laboratory Results 01/12/19 01/12/19 01/12/19 05:50 05:50 05:16 PT with INR INR Sodium Potassium Chloride Carbon Dioxide Anion Gap BUN Creatinine Est GFR (CKD-EPI)AfAm Est GFR (CKD-EPI)NonAf Random Glucose Calcium Total Bilirubin AST ALT Alkaline Phosphatase Total Protein Albumin Urine Color Yellow Urine Appearance Clear Urine pH 6.0 Ur Specific [place] 1.017 Urine Protein Negative Urine Glucose (UA) Negative Urine Ketones Negative Urine Blood Negative Urine Nitrite Negative Urine Bilirubin Negative Urine Urobilinogen 1.0 Ur Leukocyte Esterase Negative Salicylates 3.1 Opiates Screen Positive A* Methadone Screen Positive A* Acetaminophen < 2.0 L Barbiturate Screen Negative Phencyclidine Screen Positive A* Ur Amphetamines Screen Negative MDMA (Ecstasy) Screen Negative Benzodiazepines Screen Positive A* Cocaine Screen Positive A* U Marijuana (THC) Screen Positive A* Alcohol, Quantitative < 3.0 01/12/19 01/12/19 05:16 05:16 PT with INR 12.50 INR 1.06 Sodium 141 Potassium 4.2 Chloride 106 Carbon Dioxide 30 Anion Gap 4 L BUN 13.3 Creatinine 0.8 Est GFR (CKD-EPI)AfAm 128.60 Est GFR (CKD-EPI)NonAf 110.96 Random Glucose 72 L Calcium 8.4 L Total Bilirubin 0.2 AST 21 ALT 26 Alkaline Phosphatase 83 Total Protein 6.4 Albumin 3.3 L Urine Color Urine Appearance Urine pH Ur Specific [place] Urine Protein Urine Glucose (UA) Urine Ketones Urine Blood Urine Nitrite Urine Bilirubin Urine Urobilinogen Ur Leukocyte Esterase Salicylates Opiates Screen Methadone Screen Acetaminophen Barbiturate Screen Phencyclidine Screen Ur Amphetamines Screen MDMA (Ecstasy) Screen Benzodiazepines Screen Cocaine Screen U Marijuana (THC) Screen Alcohol, Quantitative 01/12/19 05:16 RBC 4.00 MCV 95.6 MCHC 34.2 RDW 13.8 D MPV 7.3 L D Neutrophils % 66.7 Lymphocytes % 22.7 Monocytes % 6.2 Eosinophils % 3.9 Basophils % 0.5 - Medications Given in the ED: ED Medications Discontinued Medications Generic Name Dose Route Start Last Admin Trade Name Janie PRN Reason Stop Dose Admin Diphenhydramine HCl 25 mg 01/12/19 05:19 01/12/19 05:37 Benadryl Injection - IVPUSH 01/12/19 05:20 25 mg ONCE ONE Administration Sodium Chloride 1,000 ml 01/12/19 05:11 01/12/19 05:37 Normal Saline - IV 01/12/19 05:12 1,000 ml ONCE ONE Administration Medical Decision Making - Medical Decision Making 01/12/19 08:22 Arranging transport for patient to [facility]. *DC/Admit/Observation/Transfer Diagnosis at time of Disposition: Polysubstance abuse - Discharge Dispostion Disposition: HOME Condition at time of disposition: Stable Decision to Admit order: No - Referrals Referrals: Darci Hernandez MD [Primary Care Provider] - - Patient Instructions Printed Discharge Instructions: Cocaine Use Disorder, DI for Alcohol Abuse, Getting Treatment for Drug Addiction Additional Instructions: Please stop using illegal drugs. Do your best to get clean at [facility]. Come back to the ER with any new or worsening concerns. - Post Discharge Activity
[2019-01-12 10:08] VITALS: BP 130/86; PULSE 54
--- NOTE | 2019-01-13 17:06 | EKG ---
Test Reason : Blood Pressure : / mmHG Vent. Rate : 053 BPM Atrial Rate : 053 BPM P-R Int : 132 ms QRS Dur : 100 ms QT Int : 454 ms P-R-T Axes : 073 023 042 degrees QTc Int : 426 ms SINUS BRADYCARDIA OTHERWISE NORMAL ECG WHEN COMPARED WITH ECG OF 14-FEB-2018 22:03, NO SIGNIFICANT CHANGE WAS FOUND Confirmed by MD WILLY, PERI ([id number]) on 01/13/2019 5:05:55 PM Referred By: Confirmed By:PERI AGUILERA MD
== END 2019-01-12 11:07 | disposition home or self-care (01) ==
LOC: JER 04:03
PROC: 3E033GC Introduction of Other Therapeutic Substance into Peripheral Vein, Percutaneous Approach (ICD-10-PCS; principal; 2019-01-12)
DX: F19.10 Other psychoactive substance abuse, uncomplicated (principal); F14.10 Cocaine abuse, uncomplicated; F11.10 Opioid abuse, uncomplicated
CPT/HCPCS: 36415; 80053; 80307; 81003; 85025; 85610; 93005; 93010; 96374; 99283-25

== ENCOUNTER 2019-01-12 11:11 | Inpatient (IN) | payer OTHER ==
[2019-01-12 13:46] VITALS: BMI 26.1
--- NOTE | 2019-01-12 14:51 | HP ---
CIWA Score Nausea/Vomitin-Mild Nausea/No Vomiting Muscle Tremors: 4-Moderate,w/Arms Extend Anxiety: 4-Mod. Anxious/Guarded Agitation: 2 Paroxysmal Sweats: 1-Minimal Palms Moist Orientation: 1-Uncertain about Date Tacttile Disturbances: 1-Very Mild Itch/Numbness Auditory Disturbances: 1-Very Mild Visual Disturbances: 1-Very Mild Sensitivity Headache: 1-Very Mild CIWA-Ar Total Score: 17 - Admission Criteria OASAS Guidelines: Admission for Medically Managed Detox: Requires at least one of the followin. CIWA greater than 12 2. Seizures within the past 24 hours 3. Delirium tremens within the past 24 hours 4. Hallucinations within the past 24 hours 5. Acute intervention needed for co occurring medical disorder 6. Acute intervention needed for co occurring psychiatric disorder 7. Severe withdrawal that cannot be handled at a lower level of care (continued vomiting, continued diarrhea, abnormal vital signs) requiring intravenous medication and/or fluids 8. Patient presents the following: CIWA greater than 12 Admission Criteria Met: Admission criteria met Admission ROS [facility] Chief Complaint: I ruined my life, I lost everything, I messed up, I want shelter Allergies/Adverse Reactions: Allergies Allergy/AdvReac Type Severity Reaction Status Date / Time No Known Allergies Allergy Verified 01/12/19 13:27 History of Present Illness: 43 yo gentleman here for detox from alcohol. Patient reports being on [facility] methadone program (50mg) - just started this week - he missed his dose today - got there too late- now seeking detox from alcohol but also feeling sick and needs methadone. Also using cocaine and intravenous heroin in the last two days (used to sniff). Denies seizures, has had black outs. Of note, patient was at [facility] from 01/05-01/07/19 and 01/08 - both times admitted and left AM. It appears he started on the methadone program on 01/09 or 01/10/19. Discussed at length with patient his leaving AM and he states this time he will stay, feels he's at the bottom and wants to get treatment. Very anxious, restless. Exam Limitations: Clinical Condition - Ebola screening Have you traveled outside of the country in the last 21 days: No (N) Have you had contact with anyone from an Ebola affected area: No Do you have a fever: No - Review of Systems Constitutional: Loss of Appetite, Changes in sleep EENT: reports: Blurred Vision, Nose Congestion Respiratory: reports: No Symptoms reported Cardiac: reports: No Symptoms Reported GI: reports: Poor Appetite, Abdominal cramping : reports: Frequency Musculoskeletal: reports: Back Pain, Muscle Pain Integumentary: reports: Pruritus, Other (scratch salvador on chest, arms, legs) Neuro: reports: Headache, Tingling, Tremors Endocrine: reports: No Symptoms Reported Hematology: reports: No Symptoms Reported Psychiatric: reports: Judgement Intact, Mood/Affect Appropiate, Anxious Other Systems: Reviewed and Negative Patient History - Patient Medical History Hx Anemia: No Hx Asthma: Yes (on pumps albutrol inhaler and nebulizer) Hx Chronic Obstructive Pulmonary Disease (COPD): No Hx Cancer: No Hx Cardiac Disorders: No Hx Congestive Heart Failure: No Hx Hypertension: No Hx Hypercholesterolemia: No Hx Pacemaker: No HX Cerebrovascular Accident: No Hx Seizures: No Hx Dementia: No Hx Diabetes: No Hx Gastrointestinal Disorders: No Hx Liver Disease: No Hx Genitourinary Disorders: No Hx Sexually Transmitted Disorders: No Hx Renal Disease (ESRD): No Hx Thyroid Disease: No Hx Human Immunodeficiency Virus (HIV): No (last 11/16 negative) Hx Hepatitis C: No Hx Depression: Yes (AND ANXIETY - hospitalized in [place] , on meds) Hx Suicide Attempt: No Hx Bipolar Disorder: No Hx Schizophrenia: No - Patient Surgical History Past Surgical History: Yes Hx Neurologic Surgery: No Hx Cataract Extraction: No Hx Cardiac Surgery: No Hx Lung Surgery: No Hx Breast Surgery: No Hx Breast Biopsy: No Hx Abdominal Surgery: No Hx Appendectomy: No Hx Cholecystectomy: No Hx Genitourinary Surgery: No Hx Section: No Hx Orthopedic Surgery: Yes (left shoulder rotary cuff- 10months ago arthsocopic) Anesthesia Reaction: No - PPD History Date: 02/16/18 Results: NEGATIVE - Reproductive History Patient is a Female of Child Bearing Age (11 -55 yrs old): No - Smoking Cessation Smoking history: Unknown if ever smoked Have you smoked in the past 12 months: No Aproximately how many cigarettes per day: 20 Hx Chewing Tobacco Use: No Initiated information on smoking cessation: Yes 'Breaking Loose' booklet given: 01/12/19 (on meds) - Substance & Tx. History Hx Alcohol Use: Yes Hx Substance Use: Yes Substance Use Type: Alcohol, Cocaine, Heroin, Marijuana, Opiates Hx Substance Use Treatment: Yes (detox, rehab, suboxone, ) - Substances abused Other Other (specify): PERCOCET Substance route: Oral Frequency: Daily Amount used: 4-5 PILLS Age of first use: 42 Date of last use: 12/07/18 Heroin Substance route: Inhalation Frequency: Daily Amount used: 50-60B/D Age of first use: 43 Date of last use: 01/06/19 Cocaine Substance route: Inhalation Frequency: 3-6 times per week Amount used: 1 GRAM Age of first use: 43 Date of last use: 01/05/19 Marijuana/Hashish Substance route: Smoking Frequency: Daily Amount used: 1/8TH OZ Age of first use: 16 Date of last use: 01/05/19 Alcohol Substance route: Oral Frequency: Daily Amount used: 2 pint of whiskey/9 of 12 ozs of beer Age of first use: 17 Date of last use: 01/05/19 Benzodiazepine (Klonopin) Substance route: Oral Frequency: 3-6 times per week Amount used: 1 pill Age of first use: 25 Date of last use: 01/09/19 Family Disease History - Family Disease History Family Disease History: Diabetes: Mother (living, in [place]), Other: Father (living , prostate cancer, in [place], hx etoh), Mother, Brother (one - here in [place]), Daughter (age 10 and 6 - healthy) Admission Physical Exam S - Vital Signs Vital Signs: Vital Signs - 24 hr 01/12/19 13:38 Temperature 97.6 F Pulse Rate 54 L Respiratory 18 Rate Blood Pressure 115/69 - Physical General Appearance: Yes: Nourished, Appropriately Dressed, Moderate Distress HEENTM: Yes: EOMI, Hearing grossly Normal, Normocephalic, Normal Voice, Pharynx Normal Respiratory: Yes: Normal Breath Sounds, No Respiratory Distress Neck: Yes: No masses,lesions,Nodules Breast: Yes: Breast Exam Deferred Cardiology: Yes: Regular Rhythm, Regular Rate Abdominal: Yes: Soft Genitourinary: Yes: Within Normal Limits Back: Yes: Normal Inspection Musculoskeletal: Yes: Back pain, Muscle Pain Extremities: Yes: Tremors, Other (left dorsal aspect of hand with mild erythema and slighly puffy from injection - no overt abscess noted) Neurological: Yes: Fully Oriented, Alert, Normal Mood/Affect, Normal Response Integumentary: Yes: Normal Color, Warm, Track Salvador (several injection salvador both arms), Other (scratch salvador on arms and legs) Lymphatic: Yes: Within Normal Limits - Diagnostic (1) Alcohol dependence with withdrawal Current Visit: Yes Status: Chronic Qualifiers: Complication of substance-induced condition: uncomplicated Qualified Code(s ): F10.230 - Alcohol dependence with withdrawal, uncomplicated (2) Opioid dependence with withdrawal Current Visit: Yes Status: Acute Comment: - need to verify methadone dose at [facility] - for today will give 30mg (3) Weight loss Current Visit: Yes Status: Acute (4) Cannabis dependence Current Visit: Yes Status: Chronic (5) Cocaine dependence Current Visit: Yes Status: Chronic Qualifiers: Substance use status: uncomplicated Qualified Code(s): F14.20 - Cocaine dependence, uncomplicated (6) Nicotine dependence Current Visit: Yes Status: Chronic Qualifiers: Nicotine product type: cigarettes Substance use status: uncomplicated Qualified Code(s): F17.210 - Nicotine dependence, cigarettes, uncomplicated Cleared for Admission [facility] - Detox or Rehab [facility] Level of Care: Medically Managed Detox Regimen/Protocol: Librium Breathalyzer - Breathalyzer Breathalyzer: 0 Urine Drug Screen - Test Device Lot number: [id number] Expiration date: 09/27/20 - Control Is test valid?: Yes - Results Drug screen NEGATIVE: No Urine drug screen results: THC-Marijuana, APOORVA-Cocaine, MOP-Opiates, MTD- Methadone, BZO-Benzodiazepines Inpatient Rehab Admission - Rehab Decision to Admit Inpatient rehab admission?: No
[2019-01-12] MEDS ORDERED: ACETAMINOPHEN 325 MG TABLET (FP) PO PRN (14:59)
[2019-01-12] MEDS ORDERED: MAG HYDROX/AL HYDROX/SIMETH 30 ML UNIT-DOSE CUP PO PRN (14:59)
[2019-01-12] MEDS ORDERED: METHOCARBAMOL 500 MG TABLET PO PRN (14:59)
[2019-01-12] MEDS ORDERED: chlordiazePOXIDE HCL 25 MG CAPSULE PO PRN (14:59)
[2019-01-12] MEDS ORDERED: IBUPROFEN 400 MG TABLET (FP) PO PRN (14:59)
[2019-01-12] MEDS ORDERED: MAGNESIUM CITRATE 300 ML BOTTLE PO PRN (14:59)
[2019-01-12] MEDS ORDERED: MENTHOL/PHENOL 1 EACH UD MM PRN (14:59)
[2019-01-12] MEDS ORDERED: chlordiazePOXIDE HCL 25 MG CAPSULE PO ONE (14:59)
[2019-01-12] MEDS ORDERED: MAGNESIUM HYDROX 2400MG/30ML ORAL SUSPENSION 30 ML CUP PO PRN (14:59)
[2019-01-12] MEDS ORDERED: BISMUTH SUBSALICYLATE 524 MG/30 ML UD PO PRN (14:59)
[2019-01-12] MEDS ORDERED: METHADONE HCL 10 MG TABLET PO ONE (15:02)
[2019-01-12] MEDS: cloNIDine HCL 0.1 MG TABLET PO SCH ×2 (16:51→22:11)
[2019-01-12] MEDS: GABAPENTIN 300 MG CAPSULE (FP) PO SCH ×2 (16:52→22:05)
[2019-01-12] MEDS: chlordiazePOXIDE HCL 25 MG CAPSULE PO SCH ×2 (17:09→22:05)
[2019-01-12] MEDS: NICOTINE 21 MG/24 HOURS TOPICAL PATCH TD SCH (17:14)
[2019-01-12] MEDS: THIAMINE HCL 100 MG TABLET (FP) PO SCH (22:09)
[2019-01-12] MEDS: MELATONIN 5 MG TABLETS PO PRN (22:09)
[2019-01-13] MEDS: chlordiazePOXIDE HCL 25 MG CAPSULE PO SCH ×4 (06:22→22:01)
[2019-01-13] MEDS: cloNIDine HCL 0.1 MG TABLET PO SCH ×4 (06:23→23:00)
[2019-01-13] MEDS: GABAPENTIN 300 MG CAPSULE (FP) PO SCH ×3 (07:29→22:01)
[2019-01-13] MEDS ORDERED: METHADONE HCL 40 MG DISPERSABLE TABLET PO ONE (10:06)
--- NOTE | 2019-01-13 10:33 | CONSULT ---
[facility] Psychiatric Consult - Data Date of interview: 01/13/19 Admission source: Self-referred Identifying data: Mr Ortiz is 43 years old male living as , father of 2 children, unemployed with no source of income, homeless seekind detox treatment for alcohol, opioid, cocaine, cannabis Substance Abuse History: Reports history of alcohol, heroin, cocaine and marijuana use. Refer to addiction counselor's summary for further information Medical History: Significant for bronchial asthma, history of arthroscopic surgery for repair of left shoulder rotator tear. Patient is on methadone 50 mg/ day from [facility]. Smokes cigarette 1 ppd Psychiatric History: Reports seeing a psychiatrist 5 years ago in [place] and he was prescribed Risperdal and Klonopin for anxiety. Claims that his anxiety was drug induced. Reports that he took medications for only a year. Reports that he just completed [facility] rehab program at [place] on December 23, 2018. He saw a psychiatrist there and he was prescribed Gabapentin 300 mg po TID, Trazadone 100 mg/hs, Vistaril 50 mg Q 8hrs and Ambien 10 mg/hs for anxiety and insomnia. Denies previous psychiatric hospitalization or suicidal attempt. At present, reports feeling anxious and sleping poorly Physical/Sexual Abuse/Trauma History: Denies history of emotional, physical or sexual abuse as well as DV relationship. No service Additional Comment: Reports history of 3 previous misdemeanor arrests on charges of [facility] Mental Status Exam - Mental Status Exam Alert and Oriented to: Time, Place, Person Cognitive Function: Fair Patient Appearance: Disheveled Mood: Anxious Affect: Appropriate Patient Behavior: Cooperative Speech Pattern: Clear Voice Loudness: Normal Thought Process: Intact, Goal Oriented Thought Disorder: Not Present Hallucinations: Denies Suicidal Ideation: Denies Homicidal Ideation: Denies Insight/Judgement: Poor Sleep: Poorly Appetite: Poor Muscle strength/Tone: Normal Gait/Station: Normal Psychiatric Findings - Problem List ([place] 1, 2,3) (1) Anxiety disorder Current Visit: Yes Status: Chronic (2) Substance-induced anxiety disorder Current Visit: Yes Status: Acute (3) Substance-induced sleep disorder Current Visit: Yes Status: Acute (4) Alcohol dependence with withdrawal Current Visit: Yes Status: Acute Qualifiers: Complication of substance-induced condition: uncomplicated Qualified Code(s ): F10.230 - Alcohol dependence with withdrawal, uncomplicated (5) Cocaine dependence Current Visit: Yes Status: Acute Qualifiers: Substance use status: uncomplicated Qualified Code(s): F14.20 - Cocaine dependence, uncomplicated (6) Cannabis dependence Current Visit: Yes Status: Acute (7) Opioid dependence on agonist therapy Current Visit: Yes Status: Chronic (8) Nicotine dependence Current Visit: Yes Status: Chronic Qualifiers: Nicotine product type: cigarettes Substance use status: uncomplicated Qualified Code(s): F17.210 - Nicotine dependence, cigarettes, uncomplicated (9) Asthma Current Visit: No Status: Chronic Qualifiers: Asthma severity: mild Asthma persistence: intermittent Asthma complication type: uncomplicated Qualified Code(s): J45.20 - Mild intermittent asthma, uncomplicated - Initial Treatment Plan Initial Treatment Plan: 1) Continue Gabapentin 300 mg po TID, Trazadone 100 mg po HS. 2) Start Vistaril 50 mg po Q 4 hrs prn for anxiety and Melatonin 5 mg po HS prn for insomnia. 3) Continue inpatient detoxification
[2019-01-13] MEDS: NICOTINE 21 MG/24 HOURS TOPICAL PATCH TD SCH (10:51)
[2019-01-13] MEDS: PRENATAL VITAMINS W/ FOLIC ACID TABLET (FP) PO SCH (10:51)
[2019-01-13] MEDS: hydrOXYzine PAMOATE 50 MG CAPSULE (FP) PO PRN ×2 (10:55→18:30)
[2019-01-13 11:15] LABS: ALBUMIN 3.3 g/dl (3.4-5.0); BILIRUBIN,TOTAL 0.3 mg/dL (0.2-1); CALCIUM 8.8 mg/dL (8.5-10.1); CREATININE 0.9 mg/dL (0.55-1.3); POTASSIUM 4.6 mmol/L (3.5-5.1); TOT PROT 6.5 g/dl (6.4-8.2)
[2019-01-13 11:16] LABS: HEMATOCRIT 39.5 % (35.4-49); HEMOGLOBIN 13.1 GM/dL (11.7-16.9); MCH 32.1 pg (25.7-33.7); MCHC 33.2 g/dl (32.0-35.9); MEAN CELL VOLUME 96.7 fl (80-96); MEAN PLT VOLUME 8.4 fl (7.5-11.1); RBC 4.09 M/mm3 (4.00-5.60); RDW 13.8 % (11.9-15.9)
[2019-01-13 11:29] LABS: PLATELET COUNT 276 K/MM3 (134-434)
[2019-01-13] MEDS ORDERED: COLLOIDAL OATMEAL 1 BAR EACH TP PRN (12:05)
--- NOTE | 2019-01-13 12:42 | PN ---
S CIWA - CIWA Score Nausea/Vomitin-No Nausea/No Vomiting Muscle Tremors: 4-Moderate,w/Arms Extend Anxiety: 4-Mod. Anxious/Guarded Agitation: 4-Moderately Restless Paroxysmal Sweats: 3 Orientation: 0-Oriented Tacttile Disturbances: 0-None Auditory Disturbances: 0-None Visual Disturbances: 0-None Headache: 0-None Present CIWA-Ar Total Score: 15 BHS Progress Note (SOAP) Subjective: sweats anxiety restless shakes interrupted sleep Objective: 01/13/19 12:41 Vital Signs Temperature 97.2 F L 01/13/19 09:23 Pulse Rate 58 L 01/13/19 09:23 Respiratory Rate 18 01/13/19 09:23 Blood Pressure 98/55 L 01/13/19 09:23 O2 Sat by Pulse Oximetry (%) Laboratory Tests 01/13/19 01/13/19 01/13/19 07:30 07:30 07:30 WBC 5.0 RBC 4.09 Hgb 13.1 Hct 39.5 MCV 96.7 H MCH 32.1 MCHC 33.2 RDW 13.8 Plt Count 276 MPV 8.4 D Sodium 141 Potassium 4.6 Chloride 104 Carbon Dioxide 33 H Anion Gap 4 L BUN 12.0 Creatinine 0.9 Est GFR (CKD-EPI)AfAm 122.52 Est GFR (CKD-EPI)NonAf 105.71 Random Glucose 83 Calcium 8.8 Total Bilirubin 0.3 AST 18 ALT 25 Alkaline Phosphatase 79 Total Protein 6.5 Albumin 3.3 L RPR Titer Nonreactive aaox3 ambulating no acute distress Assessment: 01/13/19 12:41 withdrawal sx Plan: continue detox increase fluids
--- NOTE | 2019-01-13 13:03 | PN ---
S Progress Note Note: pt is on a mmtp program and as per his mmtp program with [facility] pt is being built up to his dose of 80mg; however loan underwriter was informed today by Dr. Berrios that while pt is on our detox facility we dont built up a pt methadone; he/she is to only be built up while in his/her program.
[2019-01-13] MEDS ORDERED: guaiFENesin 200 MG/10 ML 10 ML UNIT-DOSE CUPS PO PRN (13:37)
[2019-01-13] MEDS: ALBUTEROL SO4 8 GM HFA INHALER IH PRN (13:45)
[2019-01-13] MEDS: NICOTINE POLACRILEX 4 MG GUM BUC PRN ×2 (16:54→19:12)
[2019-01-13] MEDS: traZODone HCL 50 MG TABLET (FP) PO SCH (22:01)
[2019-01-13] MEDS: THIAMINE HCL 100 MG TABLET (FP) PO SCH (22:01)
[2019-01-13] MEDS: MELATONIN 5 MG TABLETS PO PRN (22:02)
[2019-01-13] MEDS: diphenhydrAMINE HCL 25 MG CAPSULE (FP) PO PRN (22:05)
[2019-01-14] MEDS: chlordiazePOXIDE HCL 25 MG CAPSULE PO SCH ×2 (07:01→10:38)
[2019-01-14] MEDS: GABAPENTIN 300 MG CAPSULE (FP) PO SCH ×3 (07:01→23:45)
[2019-01-14] MEDS: METHADONE HCL 40 MG DISPERSABLE TABLET PO SCH (07:01)
[2019-01-14] MEDS: cloNIDine HCL 0.1 MG TABLET PO SCH ×3 (07:02→23:40)
[2019-01-14] MEDS: PRENATAL VITAMINS W/ FOLIC ACID TABLET (FP) PO SCH (10:38)
[2019-01-14] MEDS: NICOTINE 21 MG/24 HOURS TOPICAL PATCH TD SCH (10:38)
--- NOTE | 2019-01-14 11:38 | PN ---
S CIWA - CIWA Score Nausea/Vomitin-No Nausea/No Vomiting Muscle Tremors: 4-Moderate,w/Arms Extend Anxiety: 4-Mod. Anxious/Guarded Agitation: 4-Moderately Restless Paroxysmal Sweats: 1-Minimal Palms Moist Orientation: 0-Oriented Tacttile Disturbances: 0-None Auditory Disturbances: 0-None Visual Disturbances: 0-None Headache: 0-None Present CIWA-Ar Total Score: 13 BHS Progress Note (SOAP) Subjective: sweats restless anxiety Objective: 01/14/19 11:37 Vital Signs Temperature 98.2 F 01/14/19 09:12 Pulse Rate 100 H 01/14/19 09:12 Respiratory Rate 17 01/14/19 09:12 Blood Pressure 117/76 01/14/19 09:12 O2 Sat by Pulse Oximetry (%) Laboratory Tests 01/13/19 01/13/19 01/13/19 07:30 07:30 07:30 WBC 5.0 RBC 4.09 Hgb 13.1 Hct 39.5 MCV 96.7 H MCH 32.1 MCHC 33.2 RDW 13.8 Plt Count 276 MPV 8.4 D Sodium 141 Potassium 4.6 Chloride 104 Carbon Dioxide 33 H Anion Gap 4 L BUN 12.0 Creatinine 0.9 Est GFR (CKD-EPI)AfAm 122.52 Est GFR (CKD-EPI)NonAf 105.71 Random Glucose 83 Calcium 8.8 Total Bilirubin 0.3 AST 18 ALT 25 Alkaline Phosphatase 79 Total Protein 6.5 Albumin 3.3 L RPR Titer Nonreactive aaox3 ambulating no acute distress Assessment: 01/14/19 11:37 withdrawal sx Plan: continue detox increase fluids cane ordered
[2019-01-14] MEDS ORDERED: chlordiazePOXIDE HCL 10 MG CAPSULE PO PRN (17:00)
[2019-01-14] MEDS: chlordiazePOXIDE HCL 10 MG CAPSULE PO SCH ×2 (17:40→23:50)
[2019-01-14] MEDS: traZODone HCL 50 MG TABLET (FP) PO SCH (23:40)
[2019-01-14] MEDS: THIAMINE HCL 100 MG TABLET (FP) PO SCH (23:45)
[2019-01-15] MEDS: ALBUTEROL SO4 8 GM HFA INHALER IH PRN (03:13)
[2019-01-15] MEDS: diphenhydrAMINE HCL 25 MG CAPSULE (FP) PO PRN ×2 (03:34→22:31)
[2019-01-15] MEDS: chlordiazePOXIDE HCL 10 MG CAPSULE PO SCH ×3 (05:27→17:20)
[2019-01-15] MEDS: cloNIDine HCL 0.1 MG TABLET PO SCH ×3 (05:27→22:32)
[2019-01-15] MEDS: METHADONE HCL 40 MG DISPERSABLE TABLET PO SCH (05:27)
[2019-01-15] MEDS: GABAPENTIN 300 MG CAPSULE (FP) PO SCH ×3 (05:27→22:26)
--- NOTE | 2019-01-15 09:56 | PN ---
S CIWA - CIWA Score Nausea/Vomitin-Mild Nausea/No Vomiting Muscle Tremors: 2 Anxiety: 2 Agitation: 1-Slight > Activity Paroxysmal Sweats: 1-Minimal Palms Moist Orientation: 0-Oriented Tacttile Disturbances: 1-Very Mild Itch/Numbness Auditory Disturbances: 1-Very Mild Visual Disturbances: 0-None Headache: 1-Very Mild CIWA-Ar Total Score: 10 S Progress Note (SOAP) Subjective: alert,irritable,anxious,interrupted sleep Objective: 01/15/19 09:55 Vital Signs Temperature 98.2 F 01/15/19 09:21 Pulse Rate 59 L 01/15/19 09:21 Respiratory Rate 17 01/15/19 09:21 Blood Pressure 105/63 01/15/19 09:21 O2 Sat by Pulse Oximetry (%) 01/15/19 09:55 Laboratory Last Values WBC 5.0 K/mm3 (4.0-10.0) 01/13/19 07:30 RBC 4.09 M/mm3 (4.00-5.60) 01/13/19 07:30 Hgb 13.1 GM/dL (11.7-16.9) 01/13/19 07:30 Hct 39.5 % (35.4-49) 01/13/19 07:30 MCV 96.7 fl (80-96) H 01/13/19 07:30 MCH 32.1 pg (25.7-33.7) 01/13/19 07:30 MCHC 33.2 g/dl (32.0-35.9) 01/13/19 07:30 RDW 13.8 % (11.9-15.9) 01/13/19 07:30 Plt Count 276 K/MM3 (134-434) 01/13/19 07:30 MPV 8.4 fl (7.5-11.1) D 01/13/19 07:30 Sodium 141 mmol/L (136-145) 01/13/19 07:30 Potassium 4.6 mmol/L (3.5-5.1) 01/13/19 07:30 Chloride 104 mmol/L (98-107) 01/13/19 07:30 Carbon Dioxide 33 mmol/L (21-32) H 01/13/19 07:30 Anion Gap 4 MMOL/L (8-16) L 01/13/19 07:30 BUN 12.0 mg/dL (7-18) 01/13/19 07:30 Creatinine 0.9 mg/dL (0.55-1.3) 01/13/19 07:30 Est GFR (CKD-EPI)AfAm 122.52 01/13/19 07:30 Est GFR (CKD-EPI)NonAf 105.71 01/13/19 07:30 Random Glucose 83 mg/dL (74-106) 01/13/19 07:30 Calcium 8.8 mg/dL (8.5-10.1) 01/13/19 07:30 Total Bilirubin 0.3 mg/dL (0.2-1) 01/13/19 07:30 AST 18 U/L (15-37) 01/13/19 07:30 ALT 25 U/L (13-61) 01/13/19 07:30 Alkaline Phosphatase 79 U/L (45-117) 01/13/19 07:30 Total Protein 6.5 g/dl (6.4-8.2) 01/13/19 07:30 Albumin 3.3 g/dl (3.4-5.0) L 01/13/19 07:30 RPR Titer Nonreactive (NONREACTIVE) 01/13/19 07:30 Assessment: 01/15/19 09:55 withdrawal symptom Plan: continue detox,discharge in am
[2019-01-15] MEDS: PRENATAL VITAMINS W/ FOLIC ACID TABLET (FP) PO SCH (10:10)
[2019-01-15] MEDS: NICOTINE 21 MG/24 HOURS TOPICAL PATCH TD SCH (10:10)
[2019-01-15] MEDS: THIAMINE HCL 100 MG TABLET (FP) PO SCH (22:26)
[2019-01-15] MEDS: traZODone HCL 50 MG TABLET (FP) PO SCH (22:26)
[2019-01-15] MEDS: hydrOXYzine PAMOATE 50 MG CAPSULE (FP) PO PRN (22:31)
[2019-01-16] MEDS: METHADONE HCL 40 MG DISPERSABLE TABLET PO SCH (06:10)
[2019-01-16] MEDS: GABAPENTIN 300 MG CAPSULE (FP) PO SCH (06:10)
[2019-01-16] MEDS: chlordiazePOXIDE HCL 10 MG CAPSULE PO SCH (06:10)
[2019-01-16] MEDS: cloNIDine HCL 0.1 MG TABLET PO SCH (06:10)
[2019-01-16] MEDS: hydrOXYzine PAMOATE 50 MG CAPSULE (FP) PO PRN (06:12)
[2019-01-16 08:07] VITALS: BP 130/73; PULSE 84; TEMP 98
--- NOTE | 2019-01-16 09:08 | DS ---
[facility] Detox Discharge Summary Admission Date: 01/12/19 Discharge Date: 01/16/19 - History Present History: Alcohol Dependence, Cannabis Dependence, Cocaine Dependence, Opioid Dependence - Physical Exam Results Vital Signs: Vital Signs Temperature 98 F 01/16/19 08:06 Pulse Rate 84 01/16/19 08:06 Respiratory Rate 18 01/16/19 08:06 Blood Pressure 130/73 01/16/19 08:06 O2 Sat by Pulse Oximetry (%) - Treatment Hospital Course: Detox Protocol Followed, Detoxed Safely, Responded well, Discharged Condition Good, Rehab Referral Accepted - Medication Discharge Medications: Ambulatory Orders Psyllium Husk (with Sugar) [Metamucil Powder] 1 cap PO ASDIR #1 jar MDD 2 Albuterol Sulfate Inhaler - [Ventolin Hfa Inhaler -] 2 inh PO QID PRN #1 inhaler 10/03/18 Multivitamin [Multiple Vitamins] 1 each PO DAILY #30 tablet 10/10/18 Clonidine HCl 0.1 mg PO TID 01/06/19 Gabapentin 300 mg PO TID 01/06/19 Melatonin 5 mg PO HS 01/06/19 traZODone HCL [Trazodone HCl] 100 mg PO HS 01/06/19 hydrOXYzine PAMOATE [Vistaril -] 50 mg PO Q8H 01/07/19 - Diagnosis (1) Alcohol dependence with withdrawal Current Visit: Yes Status: Chronic Qualifiers: Complication of substance-induced condition: uncomplicated Qualified Code(s ): F10.230 - Alcohol dependence with withdrawal, uncomplicated (2) Cannabis dependence Current Visit: Yes Status: Chronic (3) Cocaine dependence Current Visit: Yes Status: Chronic Qualifiers: Substance use status: uncomplicated Qualified Code(s): F14.20 - Cocaine dependence, uncomplicated (4) Opioid dependence with withdrawal Current Visit: Yes Status: Chronic (5) Substance-induced anxiety disorder Current Visit: Yes Status: Acute (6) Substance-induced sleep disorder Current Visit: Yes Status: Acute (7) Substance-induced sleep disorder Current Visit: Yes Status: Acute (8) Weight loss Current Visit: Yes Status: Acute (9) Anxiety disorder Current Visit: Yes Status: Chronic (10) Nicotine dependence Current Visit: Yes Status: Chronic Qualifiers: Nicotine product type: cigarettes Substance use status: uncomplicated Qualified Code(s): F17.210 - Nicotine dependence, cigarettes, uncomplicated (11) Anxious mood Current Visit: No Status: Acute (12) Insomnia Current Visit: No Status: Acute (13) Polysubstance abuse Current Visit: No Status: Acute (14) Sedative, hypnotic or anxiolytic dependence with withdrawal, unspecified Current Visit: Yes Status: Chronic (15) Substance induced mood disorder Current Visit: No Status: Acute (16) Anxiety Current Visit: No Status: Chronic (17) Asthma Current Visit: No Status: Chronic Qualifiers: Asthma severity: mild Asthma persistence: intermittent Asthma complication type: uncomplicated Qualified Code(s): J45.20 - Mild intermittent asthma, uncomplicated - AMA Did Patient Leave Against Medical Advice: No (referred to [facility] inpatient rehab)
== END 2019-01-16 10:21 | disposition home or self-care (01) | DRG 773 ==
LOC: YASAS 11:11 → Y6N 15:43
PROVIDERS: ADMIT Surgery; ATTEND Surgery
PROC: HZ2ZZZZ Detoxification Services for Substance Abuse Treatment (ICD-10-PCS; principal; 2019-01-12)
DX: F10.230 Alcohol dependence with withdrawal, uncomplicated (principal); F11.23 Opioid dependence with withdrawal; F13.230 Sedative, hypnotic or anxiolytic dependence with withdrawal, uncomplicated; F14.20 Cocaine dependence, uncomplicated; F12.20 Cannabis dependence, uncomplicated; F17.210 Nicotine dependence, cigarettes, uncomplicated; F19.280 Other psychoactive substance dependence with psychoactive substance-induced anxiety disorder; F19.282 Other psychoactive substance dependence with psychoactive substance-induced sleep disorder; F41.9 Anxiety disorder, unspecified; J45.20 Mild intermittent asthma, uncomplicated; R63.4 Abnormal weight loss; G47.00 Insomnia, unspecified
CPT/HCPCS: 36415; 80053; 85027; 86593; J0735

== ENCOUNTER 2021-03-30 17:11 | Inpatient (IN) | payer OTHER ==
[2021-03-30 19:18] VITALS: BMI 22.3
[2021-03-30] MEDS ORDERED: MAGNESIUM CITRATE 300 ML BOTTLE PO PRN (20:24)
[2021-03-30] MEDS ORDERED: MENTHOL/PHENOL 1 EACH UD MM PRN (20:24)
[2021-03-30] MEDS ORDERED: MAGNESIUM HYDROX 2400MG/30ML ORAL SUSPENSION 30 ML CUP PO PRN (20:24)
[2021-03-30] MEDS ORDERED: BISMUTH SUBSALICYLATE 524 MG/30 ML PO PRN (20:24)
[2021-03-30] MEDS ORDERED: NICOTINE 10 MG CARTRIDGE (INHALER) IH PRN (20:24)
[2021-03-30] MEDS ORDERED: ACETAMINOPHEN 325 MG TABLET (FP) PO PRN ×2 (20:24)
[2021-03-30] MEDS ORDERED: cloNIDine HCL 0.1 MG TABLET PO PRN (20:24)
[2021-03-30] MEDS ORDERED: methaDONE HCL 10 MG TABLET (FOR DETOX USE ONLY) PO ONE (20:24)
[2021-03-30] MEDS ORDERED: IBUPROFEN 400 MG TABLET (FP) PO PRN (20:24)
[2021-03-30] MEDS ORDERED: MAG HYDROX/AL HYDROX/SIMETH 30 ML UNIT-DOSE CUP PO PRN (20:24)
[2021-03-30] MEDS ORDERED: ONDANSETRON *ODT* 4 MG TABLET SL PRN (20:24)
[2021-03-30] MEDS ORDERED: clonazePAM 0.5 MG ODT TABLETS SL PRN (20:24)
[2021-03-30] MEDS ORDERED: methaDONE HCL 10 MG TABLET (FOR DETOX USE ONLY) ONE (20:41)
[2021-03-30] MEDS ORDERED: ALBUTEROL SO4 HFA INHALER IH PRN (21:14)
[2021-03-30] MEDS ORDERED: MELATONIN 5 MG TABLETS PO SCH (22:00)
[2021-03-30] MEDS: hydrOXYzine PAMOATE 25 MG CAPSULE (FP) PO SCH (22:48)
[2021-03-30] MEDS: THIAMINE HCL 100 MG TABLET (FP) PO SCH (22:51)
[2021-03-31] MEDS: hydrOXYzine PAMOATE 25 MG CAPSULE (FP) PO SCH ×5 (06:15→23:53)
[2021-03-31] MEDS ORDERED: ALBUTEROL SO4 HFA INHALER IH PRN (09:15)
[2021-03-31] MEDS ORDERED: methaDONE HCL 10 MG TABLET (FOR DETOX USE ONLY) ONE (09:28)
[2021-03-31] MEDS: PRENATAL VITAMINS W/ FOLIC ACID TABLET (FP) PO SCH (10:38)
[2021-03-31] MEDS: METHOCARBAMOL 500 MG TABLET PO PRN (10:38)
[2021-03-31 11:02] LABS: HEMATOCRIT 35.9 % (35.4-49); HEMOGLOBIN 12.5 GM/dL (11.7-16.9); MCH 31.5 pg (25.7-33.7); MCHC 34.7 g/dl (32.0-35.9); MEAN CELL VOLUME 90.8 fl (80-96); MEAN PLT VOLUME 10.8 fl (7.5-11.1); PLATELET COUNT 59 10^3/uL (134-434); RBC 3.96 M/mm3 (4.00-5.60); RDW 14.6 % (11.9-15.9); WHITE BLOOD COUNT 4.5 K/mm3 (4.0-10.0)
[2021-03-31 12:59] LABS: BLOOD UREA NITROGEN 13.9 mg/dL (7-18); CALCIUM 7.9 mg/dL (8.5-10.1)
[2021-03-31 13:03] LABS: CREATININE 0.6 mg/dL (0.55-1.3)
[2021-03-31 13:04] LABS: BILIRUBIN,TOTAL 0.5 mg/dL (0.2-1); TOT PROT 5.9 g/dl (6.4-8.2)
[2021-03-31 13:07] LABS: ALBUMIN 2.4 g/dl (3.4-5.0)
[2021-03-31] MEDS: GABAPENTIN 300 MG CAPSULE PO SCH (23:51)
[2021-03-31] MEDS: traZODone HCL 100 MG TABLET (FP) PO SCH (23:51)
[2021-03-31] MEDS: THIAMINE HCL 100 MG TABLET (FP) PO SCH (23:53)
[2021-04-01] MEDS: GABAPENTIN 300 MG CAPSULE PO SCH ×3 (05:59→23:01)
[2021-04-01] MEDS: hydrOXYzine PAMOATE 25 MG CAPSULE (FP) PO SCH ×5 (05:59→23:01)
[2021-04-01] MEDS ORDERED: methaDONE HCL 10 MG TABLET (FOR DETOX USE ONLY) PO ONE (10:00)
[2021-04-01] MEDS: PRENATAL VITAMINS W/ FOLIC ACID TABLET (FP) PO SCH (10:49)
[2021-04-01] MEDS: traZODone HCL 100 MG TABLET (FP) PO SCH (23:01)
[2021-04-01] MEDS: THIAMINE HCL 100 MG TABLET (FP) PO SCH (23:01)
[2021-04-01] MEDS: METHOCARBAMOL 500 MG TABLET PO PRN (23:02)
[2021-04-02] MEDS: GABAPENTIN 300 MG CAPSULE PO SCH (07:00)
[2021-04-02] MEDS: hydrOXYzine PAMOATE 25 MG CAPSULE (FP) PO SCH (07:00)
[2021-04-02] MEDS ORDERED: hydrOXYzine PAMOATE 25 MG CAPSULE (FP) PO PRN (07:45)
[2021-04-02] MEDS ORDERED: methaDONE HCL 10 MG TABLET (FOR DETOX USE ONLY) ONE (08:53)
[2021-04-02] MEDS ORDERED: diazePAM 5 MG TABLET PO PRN (09:29)
[2021-04-02] MEDS: PRENATAL VITAMINS W/ FOLIC ACID TABLET (FP) PO SCH (10:56)
[2021-04-02 13:49] VITALS: BP 118/68; PULSE 80; TEMP 97.5
[2021-04-03] MEDS ORDERED: methaDONE HCL 10 MG TABLET (FOR DETOX USE ONLY) PO ONE (10:00)
== END 2021-04-02 13:48 | disposition left against medical advice (07) | DRG 770 ==
LOC: YASAS 17:11 → Y6N 20:15 → Y3N 04-01 12:12
PROVIDERS: ADMIT Allergy & Immunology; ATTEND Allergy & Immunology
PROC: HZ2ZZZZ Detoxification Services for Substance Abuse Treatment (ICD-10-PCS; principal; 2021-03-30)
DX: F10.230 Alcohol dependence with withdrawal, uncomplicated (principal); F11.23 Opioid dependence with withdrawal; F14.20 Cocaine dependence, uncomplicated; F12.20 Cannabis dependence, uncomplicated; F17.210 Nicotine dependence, cigarettes, uncomplicated; F19.282 Other psychoactive substance dependence with psychoactive substance-induced sleep disorder; F19.24 Other psychoactive substance dependence with psychoactive substance-induced mood disorder; I10 Essential (primary) hypertension; J45.20 Mild intermittent asthma, uncomplicated; B18.2 Chronic viral hepatitis C; R74.8 Abnormal levels of other serum enzymes; R63.4 Abnormal weight loss; Z68.22 Body mass index [BMI] 22.0-22.9, adult; Z56.0 Unemployment, unspecified; Z59.0 Homelessness
CPT/HCPCS: 36415; 80053; 85027; 86780; C9803; U0003; U0005